=== PATIENT | male | born 1980 | race Caucasian/White ===

== ENCOUNTER 2016-07-17 02:39 | Emergency (ER) | payer SELFPAY ==
[2016-07-17] MEDS ORDERED: CEFTRIAXONE SODIUM 250 MG VIAL ONE (03:26)
[2016-07-17] MEDS ORDERED: AZITHROMYCIN 250 MG TABLET ONE (03:26)
[2016-07-17 03:32] LABS: URINE APPEARANCE CLOUDY; URINE BILIRUBIN NEGATIVE (NEGATIVE); URINE BLOOD 1+ (NEGATIVE); URINE COLOR YELLOW; URINE GLUCOSE (UA) NEGATIVE (NEGATIVE); URINE LEUKOCYTE ESTERASE 1+ (NEGATIVE); URINE NITRITE NEGATIVE (NEGATIVE); URINE PROTEIN TRACE (NEGATIVE); URINE UROBILINOGEN NORMAL (0-1 mg/dl)
[2016-07-17 03:40] LABS: URINE BACTERIA 1+; URINE MUCUS 1+; URINE WBC >100 /hpf
[2016-07-24 20:35] LABS: SOURCE URINE
[2016-07-24 20:38] LABS: CHLAMYDIA BD Negative; N.GONORRHOEAE BD Positive
== END 2016-07-17 03:44 | disposition home or self-care (01) ==
LOC: ED 02:39
DX: R36.9 Urethral discharge, unspecified (principal)
CPT/HCPCS: 87491; 87591; 87086; 81001; 99283 ×2; 96372; J0696; A9270